=== PATIENT | female | born 1940 | race Caucasian/White ===

== ENCOUNTER 2020-08-22 06:04 | Day surgery (SDC) | payer MEDICARE ==
[2020-08-16 14:06] LABS: BASOPHILS % (AUTO) 0.6 % (0-1); EOSINOPHILS # (AUTO) 0.1 X10'3 (0-0.9); EOSINOPHILS % (AUTO) 0.9 % (0-6); LYMPHOCYTES # (AUTO) 1.9 X10'3 (1.1-4.8); LYMPHOCYTES % (AUTO) 26.9 % (21-51); MEAN CORPUSCULAR HEMOGLOBIN 29.8 PG (27.0-31.0); MEAN CORPUSCULAR HGB CONC 33.7 g/dL (33.0-36.5); MEAN CORPUSCULAR VOLUME 88.5 FL (78-98); MEAN PLATELET VOLUME 7.6 FL (7.4-10.4); MONOCYTES # (AUTO) 0.5 X10'3 (0-0.9); MONOCYTES % (AUTO) 7.3 % (2-12); NEUTROPHILS # (AUTO) 4.4 X10'3 (1.8-7.7); NEUTROPHILS % (AUTO) 64.3 % (42-75); PRE OP HEMATOCRIT 40.3 % (35.0-45.0); PRE OP HEMOGLOBIN 13.6 g/dL (12.0-16.0); PRE OP PLATELET COUNT 180 X10'3 (140-440); RED BLOOD COUNT 4.56 X10'6 (4.20-5.60); RED CELL DISTRIBUTION WIDTH 14.1 % (11.5-14.5)
[2020-08-16 14:22] LABS: ALBUMIN 3.8 G/DL (3.4-5.0); ALBUMIN/GLOBULIN RATIO 1.3 (1.1-1.5); ALKALINE PHOSPHATASE 66 IU/L (46-116); BLOOD UREA NITROGEN 10 MG/DL (7-18); BUN/CREATININE RATIO 15.2 (6.6-38.0); CALCIUM 9.8 MG/DL (8.5-10.1); CHLORIDE 101 MMOL/L (99-107); CREATININE 0.66 MG/DL (0.40-0.90); PRE OP ANION GAP 5 (8-16); PRE OP AST 11 U/L (10-37); PRE OP BILIRUB, TOTAL 0.7 MG/DL (0.0-1.0); PRE OP GLUCOSE 95 MG/DL (70-104); PRE OP POTASSIUM 4.1 MMOL/L (3.4-5.1); PRE OP SODIUM 133 MMOL/L (135-145); TOTAL CARBON DIOXIDE 27.4 MMOL/L (24-32); TOTAL PROTEIN 6.7 G/DL (6.4-8.2); eGFR 87 ML/MIN
[2020-08-16 14:34] LABS: PRE OP ALT 6 U/L (30-65)
[~2020-08-22] VITALS: Ht 170.2 cm; Wt 85.6 kg
[2020-08-22] VITALS (8 sets, daily range): BP systolic 129–165; BP diastolic 66–79
[~2020-08-22 06:04] MED LIST: ATOR10TA70 PO; CARB1TAB35 PO; CARV6.253 PO; DOCU50CA13 PO; FLUO40CA PO; FLUO40CA10 PO; FURO-150 PO; FURO40TA4 PO; GABA-530 PO; ISOS30TA6 PO; LAN0.125T PO; LISI-600 PO; MONT10TA26 PO; MULT-1085 PO; OMEP-50 PO; SPIR25TA5 PO; TRIH2TAB3 PO; [UNRECOGNIZED DRUG - OTHER] PO; cefazolin/dext.iso 2gm/100ml 100 ML IV ONE; cefazolin/dext.iso 2gm/50ml 50 ML IV ONE; famotidine 20mg tablet PO ONE; mupirocin 2% nasal ointment 1gm UD NS ONE; ringers solution, lacted 1,000 ML IV SCH
[2020-08-22] MEDS ORDERED: ceFAZolin 1000mg inj ONE (06:44)
[2020-08-22] MEDS ORDERED: LIDOcaine 1% 30ml preserv. free vial ONE (06:45)
[2020-08-22] MEDS ORDERED: morphine 4 MG/ML inj SYRINge IV PRN (07:45)
[2020-08-22] MEDS ORDERED: ondansetron/PF 4mg/2ml inj IV PRN (07:45)
[2020-08-22] MEDS ORDERED: fentaNYL/PF 50MCG/1 ML 2ML syringe IV PRN ×2 (07:45)
[2020-08-22] MEDS ORDERED: enalaprilat dihydrate 2.5mg/2ml vial IV PRN (07:45)
[2020-08-22] MEDS ORDERED: ringers solution, lacted 1,000 ML IV SCH (07:45)
[2020-08-22] MEDS ORDERED: morphine 2 MG/ML inj. syringe IV PRN (07:45)
[2020-08-22] MEDS ORDERED: hydrALAZINE 20mg/ml inj. IV PRN (07:45)
[2020-08-22] MEDS ORDERED: midazolam 2 mg/2 ml injection ONE ×2 (07:47)
[2020-08-22] MEDS ORDERED: fentaNYL/PF 50MCG/1 ML 2ML syringe ONE (07:47)
--- NOTE | 2020-08-22 09:00 | NUR ---
Received from OR via BED, accompanied by Anesthesiologist DR DICKENS--- and report given by Anesthesiolgist. PATIENT A&OX4, DENIES PAIN, V/S WNL, NEUROVASCULAR CHECKS INTACT, 20G PIV LUE, SCD ON, DRESSING TO PACER SITE LEFT CHEST CDI
--- NOTE | 2020-08-22 10:00 | NUR ---
PATIENT A&OX4, DENIES PAIN, V/S WNL, NEUROVASCULAR CHECKS INTACT, 20G PIV LUE D/C, SCD OFF, DRESSING TO PACER SITE LEFT CHEST CDI. PACER CHECKED BY TECH, TRANSMITTER SENT HOME WITH PATIENT WELL, WITH CONTACT INFO FOR USAGE. I HAVE REVIEWED D/C INSTRUCTIONS WITH PATIENT AND FAMILY AND THEY HAVE VERBALIZED UNDERSTANDING. PATIENT D/C HOME WITH ALL BELONGINGS AND FAMILY GAVE TRANSPORT HOME.
--- NOTE | 2020-08-22 10:00 | NUR ---
PATIENT GIVEN MASK AT D/C BUT DID NOT WANT TO WEAR IT AT THAT TIME.
== END 2020-08-22 10:00 | disposition home or self-care (01) ==
LOC: PAS 06:04
PROVIDERS: ATTEND Thoracic Surgery (Cardiothoracic Vascular Surgery)
DX: Z45.02 Encounter for adjustment and management of automatic implantable cardiac defibrillator (principal); G47.30 Sleep apnea, unspecified; Z20.828 Contact with and (suspected) exposure to other viral communicable diseases; I25.2 Old myocardial infarction; I11.0 Hypertensive heart disease with heart failure; I50.9 Heart failure, unspecified; G20 Parkinson's disease; F02.80 Dementia in other diseases classified elsewhere, unspecified severity, without behavioral disturbance, psychotic disturbance, mood disturbance, and anxiety; I44.7 Left bundle-branch block, unspecified; I42.8 Other cardiomyopathies; M19.90 Unspecified osteoarthritis, unspecified site; Z88.5 Allergy status to narcotic agent; Z79.899 Other long term (current) drug therapy; Z90.49 Acquired absence of other specified parts of digestive tract; Z90.710 Acquired absence of both cervix and uterus; Z96.652 Presence of left artificial knee joint; Z96.642 Presence of left artificial hip joint; Z98.890 Other specified postprocedural states
CPT/HCPCS: 33264; 36415; 76937; 80053; 82948; 85025; 87635; C1882; J0690; J2001; J2250; J3010; A4215; A7000; J7120